=== PATIENT | male | born 1955 | race Caucasian/White ===

== ENCOUNTER 2016-12-18 14:38 | Emergency (ER) | payer MEDICARE, OTHER ==
[~2016-12-18 14:38] MED LIST: ASPIR 8181 MG PO; BUSPIRONE HCL10 MG PO; BUSPIRONE HCL15 MG PO; CYCLOBENZAPRINE10 MG PO; CYMBALTA30 MG PO; LEVAQUIN750 MG PO; NEURONTIN 400M400 MG PO; NEURONTIN300 MG PO; PERCOCET 10-321 EACH PO; PERCOCET 5/3251 TAB PO; PROAIR HFA8.5 GM INH; RANITIDINE HCL150 MG PO; TOPROL XL50 MG PO; VENTOLIN HFA8 GM INH; XANAX1 MG PO; XARELTO10 MG PO
== END 2016-12-18 18:07 | disposition home or self-care (01) ==
LOC: FER 14:38
DX: S83.92XA Sprain of unspecified site of left knee, initial encounter (principal); S93.402A Sprain of unspecified ligament of left ankle, initial encounter; M54.9 Dorsalgia, unspecified; I10 Essential (primary) hypertension; Z79.899 Other long term (current) drug therapy; X50.1XXA Overexertion from prolonged static or awkward postures, initial encounter; Y92.009 Unspecified place in unspecified non-institutional (private) residence as the place of occurrence of the external cause
CPT/HCPCS: 73564; 73610; 99283